=== PATIENT | female | born 1945 | race Caucasian/White ===

== ENCOUNTER → 2017-07-17 | Outpatient (CLI) | payer OTHER ==
[~2017-07-17] MED LIST: ACET650T82 PO; ALL180 PO; ATOR10TA88 PO; CALC-220 PO; CHOL1CAP57 PO; CITA40TA4 PO; CYCL10TA6 PO; DIPH-437 PO; DPR600 PO; GLUCTAB32 PO; LEVO125T4 PO; MULT-884 PO; OXYBUTYNIN CHLORIDE PO; RXC5 PO; VTMB12100 PO; WHEATAB2 PO
--- NOTE | 2017-07-17 15:47 | DIAGNOSTIC IMAGING REPORT ---
BONE SCAN 3PHASE WHOLE BODY CLINICAL HISTORY: PAINFUL RT KNEE TECHNIQUE: Dynamic as well as static images from the administration of 25.6 mCi technetium 99m MDP. COMPARISON STUDY: None FINDINGS: Initial dynamic vascular flow images show increased activity and vascular flow about the right knee as compared to the left. Blood pool and static delayed images demonstrate increased activity primarily deep to the tibial prosthetic. Moderate activity is identified adjacent to the femoral prosthetic. Remainder the study shows mild degenerative activity of the lumbar spine as well as cervical region. There are findings of care calyceal distention involving components of the upper right kidney. Renal ultrasonography is suggested as follow-up. IMPRESSION: 1. 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 2. Additional postoperative changes of the shoulders considered unremarkable by bone scan criteria. 3. Degenerative activity of the cervical and lumbar spine. 4. Calyceal dilatation upper pole right kidney. Renal ultrasound is recommended as follow-up. The above report was generated using voice recognition software. It may contain grammatical, syntax or spelling errors. Electronically signed by: Luke Brewer M.D. 07/17/2017 3:45 PM Dictated Date/Time: 07/17/2017 3:41 PM
--- NOTE | 2017-07-25 11:42 | CODING QUERY NO DIAGNOSIS ---
TREATMENT RENDERED WITHOUT A DIAGNOSIS To promote full compliance with coding requirements relating to patient care, physician participation is requested in all cases of technology education teacher uncertainty. Please assist us with providing a diagnosis/symptom for the test(s) below: A diagnosis/symptom was not documented on your Order. A valid diagnosis/symptom is required to bill all insurances. Please remember that we are unable to code a diagnosis of rule out, probable, possible, questionable, or suspected. Tests that require a diagnosis: * BONE SCAN 3PHASE WHOLE BODY DIAGNOSIS: Provider Signature: Date: Thank you Brittanie [place] [employer] Once completed, please kindly fax back to [phone] For questions please call [phone]
== END | disposition home or self-care (01) ==
LOC: C.NUCL 11:00
PROVIDERS: ATTEND Orthopaedic Surgery
DX: M25.561 Pain in right knee (principal); T84.039A Mechanical loosening of unspecified internal prosthetic joint, initial encounter; X58.XXXA Exposure to other specified factors, initial encounter

== ENCOUNTER 2017-08-19 10:08 | Inpatient (IN) | payer OTHER ==
[2017-08-06 11:46] VITALS: BMI 35.0
--- NOTE | 2017-08-06 12:45 | PAT Medication Instructions ---
Service Date Aug 06, 2017. Current Home Medication List Acetaminophen (Tylenol Arthitis Ext Rel), 2 TAB PO DAILY PRN for Pain Atorvastatin (Lipitor), 10 MG PO QPM Calcium Carbonate-Vitamin D (Calcium + D), 1 TAB PO QAM Cetirizine Hcl (Eq Allergy Relief), 1 TAB PO QAM PRN for ALLERGY RELIEF Cholecalciferol (Vitamin D3), 1,000 UNITS PO QAM Citalopram (Citalopram Hydrobromide), 40 MG PO QAM Cyanocobalamin (B-12), 1 TAB PEG QPM Cyclobenzaprine Hcl (Flexeril), 10 MG PO TID PRN for PRN Garlic (Garlic), 1 TAB PO QAM Qanbhqazufm-Vujcfcaecwk-Ko Cho (Glucosamine Chondroitin &), 1 TAB PO BID Levothyroxine Sodium (Levothyroxine Sodium), 1 TAB PO QPM Multiple Vitamin (Multi Vitamin Daily), 1 TAB PO QAM Oxaprozin (Oxaprozin), 600 MG PO BID Oxybutynin Chloride (Oxybutynin Chloride ER), 2 TAB PO QPM Medication Instructions For Your Scheduled Surgery - Hold the following medications 2 weeks prior to surgery: Garlic (Garlic), 1 TAB PO QAM Ndrlgexvtig-Iixvwkfiuig-Mw Cho (Glucosamine Chondroitin &), 1 TAB PO BID - Hold the following medications 7-10 days prior to surgery: Oxaprozin (Oxaprozin), 600 MG PO BID - Hold the following medications the morning of surgery: Calcium Carbonate-Vitamin D (Calcium + D), 1 TAB PO QAM Cetirizine Hcl (Eq Allergy Relief), 1 TAB PO QAM PRN for ALLERGY RELIEF Cholecalciferol (Vitamin D3), 1,000 UNITS PO QAM Cyclobenzaprine Hcl (Flexeril), 10 MG PO TID PRN for PRN Multiple Vitamin (Multi Vitamin Daily), 1 TAB PO QAM - Take the following medications the morning of surgery with a sip of water OTHERWISE NOTHING TO EAT OR DRINK AFTER MIDNIGHT: Acetaminophen (Tylenol Arthitis Ext Rel), 2 TAB PO DAILY PRN for Pain (may take if needed up to 4 hours prior to surgery) Citalopram (Citalopram Hydrobromide), 40 MG PO QAM - Take the following medications as scheduled the night before surgery: Levothyroxine Sodium (Levothyroxine Sodium), 1 TAB PO QPM Oxybutynin Chloride (Oxybutynin Chloride ER), 2 TAB PO QPM Atorvastatin (Lipitor), 10 MG PO QPM Acetaminophen (Tylenol Arthitis Ext Rel), 2 TAB PO DAILY PRN for Pain Cyclobenzaprine Hcl (Flexeril), 10 MG PO TID PRN for PRN Cyanocobalamin (B-12), 1 TAB PO QPM If you have any questions please call us at [phone] or [phone] or [phone]
[2017-08-06 13:27] LABS: BASO % 0.6 %; BASO ABS # 0.03 K/uL (0-0.2); COMPLETE YES; EOS % 3.4 %; HEMATOCRIT 40.3 % (37-47); IG% 0.2 %; LYMPH % 30.1 %; LYMPH ABS # 1.51 K/uL (1.2-3.4); MEAN CELL VOLUME 93.1 fL (80-100); MEAN CORPUSCULAR HGB CONC 32.3 g/dl (32-36); MEAN PLATELET VOLUME 10.6 fL (7.4-10.4); MONO % 6.6 %; NEUT % 59.1 %; PLATELET COUNT 302 K/uL (130-400); RED BLOOD COUNT 4.33 M/uL (4.2-5.4); WHITE BLOOD COUNT 5.02 K/uL (4.8-10.8)
--- NOTE | 2017-08-06 13:31 | DIAGNOSTIC IMAGING REPORT ---
CHEST 2 VIEWS ROUTINE HISTORY: 71 years-old Female pat preoperative exam. No acute chest complaints COMPARISON: Chest radiographs 06/28/2015 TECHNIQUE: Frontal and lateral views of the chest FINDINGS: Cardiomediastinal and hilar silhouettes are within normal limits. There is no pneumothorax, pleural effusion or focal airspace consolidation. No overt pulmonary edema. Remote healed right-sided rib fractures are again seen. Advanced right shoulder degenerative changes. Left shoulder arthroplasty noted. There is mild sigmoidal scoliosis of the spine. Surgical clips within the upper abdomen suggest prior cholecystectomy. IMPRESSION: No acute cardiopulmonary process. The above report was generated using voice recognition software. It may contain grammatical, syntax or spelling errors. Electronically signed by: Eulogio Smallwood M.D. 08/06/2017 1:30 PM Dictated Date/Time: 08/06/2017 1:29 PM
[2017-08-06 13:37] LABS: INR 1.1 (0.9-1.1); PARTIAL THROMBOPLASTIN RATIO 1.1; PROTHROMBIN TIME (PATIENT) 11.3 SECONDS (9.0-12.0)
[2017-08-06 13:38] LABS: URINE APPEARANCE CLEAR (CLEAR); URINE BILIRUBIN NEG (NEG); URINE COLOR YELLOW; URINE NITRITE POS (NEG); URINE SPECIFIC GRAVITY 1.019 (1.000-1.030); UROBILINOGEN NEG (NEG)
[2017-08-06 13:50] LABS: MANUAL MICROSCOPIC REQUIRED? NO; REVIEW REQ? NO
[2017-08-06 14:01] LABS: BUN/CREATININE RATIO 29.5 (10-20); CALCIUM 8.9 mg/dl (8.5-10.1); CREATININE 0.59 mg/dl (0.60-1.20); POTASSIUM 3.8 mmol/L (3.5-5.1)
--- NOTE | 2017-08-18 19:05 | HISTORY & PHYSICAL EXAMINATION ---
DATE OF ADMISSION: 08/19/2017 HISTORY AND PHYSICAL ADMISSION NOTE CHIEF COMPLAINT: Prosthetic loosening of the right knee. HISTORY OF PRESENT ILLNESS: Vianey is a pleasant 71-year-old female who is now 3 years status post right total knee arthroplasty. She was doing well until about 3 months ago. She states she has had several falls over the winter, but did not seem to bother her knee too much until over the past 3 months, it has become quite painful. It really hurts her each step she takes. Her recently and in dealing with his illness she had to stand for long periods of time. That is when she really began to notice it. X-rays in the office showed possible loosening, so I sent her for bone scan and bone scan confirmed loosening of the prosthesis. White count is 5.02 and she is afebrile. ESR is 6 and CRP is 0.54. There is no effusion or signs of infection so I do not feel an aspiration is indicated. She has elected to proceed with a revision of the tibial component of a right total knee arthroplasty. PAST MEDICAL HISTORY: Significant for hypothyroidism, depression, and hyperlipidemia. PAST SURGICAL HISTORY: Significant for a right total knee arthroplasty 3 years ago and a left total shoulder arthroplasty 2 years ago. ALLERGIES: CIMETIDINE AND PENICILLINS. MEDICATIONS: Include Tylenol 650 mg as needed, Lipitor 10 mg daily, calcium D daily, cetirizine 10 mg as needed, vitamin D3 1000 units daily, Celexa 40 mg daily, vitamin B12 1000 mg daily, Flexeril 10 mg 3 times a day, glucosamine chondroitin twice a day, Synthroid 125 mcg daily, daily multivitamin, oxaprozin 600 mg twice a day and oxybutynin 10 mg 2 tabs daily. FAMILY HISTORY: Significant for uterine cancer. SOCIAL HISTORY: She is , lives alone. She never drinks alcohol and is moderately active. REVIEW OF SYSTEMS: She complains of right knee pain. All other pertinent review of systems is negative. PHYSICAL EXAMINATION: GENERAL: She is awake, alert and oriented x3. She is in no apparent distress. She is very pleasant. HEENT: Pupils are equal, round and reactive to light. Extraocular motion intact. Oral mucosa is pink and moist. HEART: Regular rate per radial pulse. LUNGS: Freya symmetrically bilaterally with no audible breath sounds. ABDOMEN: Soft, nontender, nondistended. MUSCULOSKELETAL: On physical examination of the right knee, she has a slight valgus deformity. She has decent motion from 0-120 degrees. There is no true instability. She has a lot of tenderness to palpation in the area of the proximal tibia and tibial plateau. She is able to ambulate into the office without assistance. She has full range of motion of her hip without pain. IMAGING DATA: X-rays of the left knee do show radiolucency around the tibial prosthesis with some signs of subsidence. Bone scan of the knee does show significant increased uptake around the area of the tibial plateau, which is indicative of tibial loosening. 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 PLAN: Will proceed with a revision right total knee arthroplasty to include a cemented tibial component with a stem. She will be started on Xarelto postoperatively for DVT prophylaxis. She will be kept in the hospital for likely 2 midnights for postoperative medical management. NIKUNJ
[2017-08-19] VITALS (7 sets, daily range): BP systolic 102–126; BP diastolic 65–70; PULSE 54–70; TEMP 36.2–36.7; O2SAT 91–99; Ht 152.4 cm; Wt 82.4 kg
[~2017-08-19] VITALS: Ht 152.4 cm; Wt 82.4 kg
[~2017-08-19 10:08] MED LIST changes: -ACET650T82 PO; +ACETAMINOPHEN 500 MG TAB PO SCH; -ALL180 PO; +ATOR10TA82 PO; -ATOR10TA88 PO; +BUPIVACAINE 0.5 % 5 MG/1 ML PF 10ML VIAL ONE; -CALC-220 PO; +CALC600T9 PO; +CETI1TAB PO; +CYAN1CAP3 PO; -DIPH-437 PO; +DTRSR/10 PO; +FAMOTIDINE 20 MG TAB PO SCH; +GABAPENTIN 300 MG CAP PO SCH; +GARL10007 PO; +LACTATED RINGER'S 1000ML 1,000 ML IV SCH; +LACTATED RINGER'S 1000ML IV SCH; +LACTATED RINGER'S 500 ML IV SCH; -LEVO125T4 PO; +LEVO125T5 PO; +METOCLOPRAMIDE HCL 10 MG TAB PO SCH; -OXYBUTYNIN CHLORIDE PO; +ROPIVACAINE 5MG/ML 30 ML 150 MG, BUPIVACAINE 0.5% MPF INJ 30 ML, EpINEphrine HCL INJ 0.... INFIL SCH; -RXC5 PO; +TYLER650 PO; +VANCOMYCIN INJ 1,250 MG in SODIUM CHLORIDE 0.9% 250ML 250 ML IV SCH; -VTMB12100 PO; -WHEATAB2 PO
[2017-08-19] MEDS ORDERED: EpHEDrine SULFATE INJ 50 MG/ML AMP IV PRN ×2 (13:30→18:15)
[2017-08-19] MEDS ORDERED: ATROPINE SULFATE 0.1 MG/ML 5ML SYR IV PRN ×2 (13:30→18:15)
[2017-08-19] MEDS ORDERED: ONDANSETRON INJ 2 MG/ML 2 ML VIAL IV PRN ×3 (13:30→18:15)
[2017-08-19] MEDS ORDERED: FENTANYL CITRATE INJ 50 MCG/1 ML 2 ML VIAL IV PRN (13:30)
--- NOTE | 2017-08-19 13:32 | History & Physical Bridge Note ---
H&P Re-Evaluation Bridge Note: I have examined the patient, reviewed the History & Physical and in the interval since the performance of the History & Physical I have noted the following changes of clinical significance: No changes noted
[2017-08-19] MEDS ORDERED: BUPIVACAINE 0.25% 30 ML VIAL ONE (14:04)
[2017-08-19] MEDS ORDERED: FENTANYL CITRATE INJ 50 MCG/1 ML 2 ML VIAL ONE (14:57)
[2017-08-19] MEDS ORDERED: MIDAZOLAM HCL 1 MG/ML 2ML VIAL ONE (14:57)
[2017-08-19] MEDS: TRANEXAMIC ACID INJ 1,000 MG in SODIUM CHLORIDE 0.9% 100ML 100 ML IV SCH ×2 (15:31→20:32)
[2017-08-19] MEDS ORDERED: BACITRACIN 50000 UNIT VIAL ONE (15:36)
[2017-08-19] MEDS ORDERED: ORTHO JOINT ANESTHETIC ONE (15:36)
[2017-08-19] MEDS ORDERED: CEFAZOLIN SOD 1 GM VIAL ONE (16:14)
[2017-08-19] MEDS ORDERED: LIDOCAINE HCL 2% 2 ML VIAL (20MG/ML) ONE (16:52)
[2017-08-19] MEDS ORDERED: PROPOFOL IV EMULSION 10 MG/ML 20 ML VIAL IV ONE ×2 (16:52)
[2017-08-19] MEDS ORDERED: SOD PHOSPHATE/SOD BIPHOSPHATE ENEMA 132 ML BTL PR PRN (17:45)
[2017-08-19] MEDS ORDERED: MoRPHine SULFATE 2 MG/ML CARP IV PRN (17:45)
[2017-08-19] MEDS ORDERED: METOCLOPRAMIDE HCL INJ 5 MG/ML 2 ML VIAL IV PRN (17:45)
[2017-08-19] MEDS ORDERED: OXYCODONE HCL IR 5 MG TAB (IMMEDIATE RELEASE) PO PRN (17:45)
[2017-08-19] MEDS ORDERED: MAGNESIUM HYDROXIDE SUSP 30 ML UDC PO PRN (17:45)
[2017-08-19] MEDS ORDERED: BISACODYL 10 MG SUPP PR PRN (17:45)
[2017-08-19] MEDS ORDERED: CETIRIZINE HCL 10 MG TAB PO PRN (17:45)
--- NOTE | 2017-08-19 17:45 | [facility] Post Operative Brief Note ---
Immediate Operative Summary Operative Date Aug 19, 2017. Pre-Operative Diagnosis Tibial component loosening of the right knee Post-Operative Diagnosis Same Procedure(s) Performed Right Total Knee Revision of Tibial Component Surgeon Dr. Marte Information Systems Security Officer Surgeon(s) Omar Chávez PA-C Estimated Blood Loss 10cc Findings as above Specimens a. explanted hardware- right knee Complication(s) None Disposition Recovery Room / PACU
[2017-08-19] MEDS ORDERED: FLUMAZENIL 0.1 MG/1 ML 10 ML VIAL IV PRN (18:15)
[2017-08-19] MEDS ORDERED: NALOXONE HCL 0.4 MG/1 ML VIAL/CARP IV PRN (18:15)
--- NOTE | 2017-08-19 18:40 | OPERATIVE REPORT ---
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 POSTOPERATIVE DIAGNOSIS: Same. PROCEDURE: Right knee revision tibial component with a stemmed implant. SURGEON: Dr. Trey Marte. RIGGING LOFT REPAIRER: Omar Chávez PA-C, whose assistance was necessary for positioning of the leg and helping with instrumentation and retraction. ANESTHESIA: Spinal with a right adductor nerve block. COMPLICATIONS: None. CONDITION: Stable to PACU. IMPLANTS USED: I removed the old tibial baseplate and replaced it with a Biomet 360 revision system with a size 71 tibia with a 5-mm offset and a size 80 stem. Stem was a size 15. There was size 14 posterior stabilized poly. INDICATIONS: Vianey is a pleasant 71-year-old female who underwent a right total knee arthroplasty about 3 years ago. She did extremely well with her knee and was happy. Unfortunately, she fell several times over the winter and then her . Her knee has been bothering her and it has been getting worse. She was having trouble ambulating. X-rays and bone scan were diagnostic for loosening of the tibial component. Labwork confirmed aseptic loosening. DESCRIPTION OF PROCEDURE: On 08/19/2017, she arrived at [facility] for the above procedure. She was seen in the preoperative holding area and the operative extremity was identified and signed. She was given a preoperative antibiotic, a spinal anesthetic and a right adductor nerve block. She was taken back to the operating room, laid on the table in supine position and put under basic sedation. The right knee was then prepped and draped in sterile fashion. Time-out was done and the patient and operative extremity was properly identified. The old incision was opened back up midline over the patella. Dissection was taken down through the extensor mechanism and a medial parapatellar approach was used. There was not a lot of scar tissue and the entire knee looked relatively benign. When the knee joint was opened, there was a little bit of synovial fluid in the joint and certainly no signs of infection. The medial retinaculum was released and the knee was flexed. The femoral component was checked first. It was tapped aggressively with a bone tamp and I could not get the femoral component removed. The tibial component could easily be removed. An osteotome was used to a kind of lift it off of the proximal tibia. The tibial component was removed and all the cement easily came out. Time was spent removing all soft tissue from the bone and around the proximal tibia. A sequential reaming up to a size 16 reamer was done. Off the final reamer, a proximal tibial resection guide was placed and 1 mm was taken off the low medial side. This freshened up the cut. The tibia measured to be a size 71 and a size 5-mm tibial offset seemed to be the best fit. I used an 80-mm stem. Trials were used and I was happy with the placement of the tibia. The final size 71 tibia with a 5-mm offset and an 80 stem was then cemented into place. Care was taken to ensure cement was appropriately pushed in all bony crevices and well placed along the tibial component. Once cement had hardened, several different polyethylene inserts were trialed and a size 14 seemed to be the best fit. The final size 14 implant was then snapped into place and the anterior bar was locked. The knee was brought through a full range of motion and felt to be stable. Again, the femoral component was once again checked and there was no evidence of loosening. The surrounding soft tissues were injected with 100 mL of an orthopedic pain control cocktail. The wound was then irrigated with 3 liters of normal saline solution with bacitracin. The extensor mechanism was then closed with #2 FiberWire suture in the superior medial aspect and #1 Vicryl, both proximally and distally. The incision was then closed with 2-0 Vicryl, 3-0 V-Loc suture and andre. She was then placed in a soft compressive dressing and taken to the postanesthesia care unit in stable condition. She tolerated the procedure well. I attest to the content of the Intraoperative Record and any orders documented therein. Any exceptions are noted below. NIKUNJ
--- NOTE | 2017-08-19 18:46 | DIAGNOSTIC IMAGING REPORT ---
R KNEE 1 OR 2 VIEWS ROUTINE CLINICAL HISTORY: Postoperative evaluation. COMPARISON: Knee radiographs July 09, 2017. FINDINGS: Alignment of the revision right knee arthroplasty is anatomic with a long stem tibial component. There is no fracture or unexpected radiopaque foreign body. Skin andre are present. IMPRESSION: Expected findings following revision right knee arthroplasty. Electronically signed by: Vega Corona M.D. 08/19/2017 6:45 PM Dictated Date/Time: 08/19/2017 6:44 PM
--- NOTE | 2017-08-19 19:08 | Anesthesiology Progress Note ---
Anesthesia Post Op Note Date & Time Aug 19, 2017 at 19:07 Vital Signs Pain Intensity: 0 Vital Signs Past 12 Hours Date Time Temp Pulse Resp B/P (MAP) Pulse Ox O2 Delivery O2 Flow Rate FiO2 08/19/17 18:55 36.5 63 18 128/59 97 Nasal Cannula 2 08/19/17 18:45 72 18 106/55 97 Nasal Cannula 2 08/19/17 18:35 65 20 103/62 95 Nasal Cannula 2 08/19/17 18:25 76 20 118/58 95 Oxymask 3 08/19/17 18:15 83 20 111/58 96 Oxymask 5 08/19/17 18:06 36.8 88 20 119/59 97 Oxymask 10 08/19/17 10:49 36.7 70 20 126/70 96 Room Air Notes Mental Status: alert / awake / arousable, participated in evaluation Pt Amnestic to Procedure: Yes Nausea / Vomiting: adequately controlled Pain: adequately controlled Airway Patency, RR, SpO2: stable & adequate BP & HR: stable & adequate Hydration State: stable & adequate Neuraxial Anesthesia: was administered, sensory block is resolving Anesthetic Complications: no major complications apparent
[2017-08-19] MEDS: SODIUM CHLORIDE 0.9% 1000ML 1,000 ML IV SCH (20:38)
[2017-08-19] MEDS: CYANOCOBALAMIN 500 MCG TAB (VIT B-12) PO SCH (21:21)
[2017-08-19] MEDS: ATORVASTATIN 10 MG TAB PO SCH (21:21)
[2017-08-19] MEDS: DOCUSATE SODIUM 100 MG CAP PO SCH (21:21)
[2017-08-19] MEDS: SENNA 8.6 MG TAB PO SCH (21:22)
[2017-08-19] MEDS: ACETAMINOPHEN 500 MG TAB PO SCH (21:22)
[2017-08-19] MEDS: OXYBUTYNIN CHLORIDE 5 MG TABCR PO SCH (21:22)
[2017-08-19] MEDS: KETOROLAC TROMETHAMINE 15 MG/ML VIAL IV. SCH (21:27)
[2017-08-19] MEDS ORDERED: VANCOMYCIN INJ 1,250 MG in SODIUM CHLORIDE 0.9% 250ML 250 ML IV SCH (22:00)
[2017-08-20 02:28] VITALS: BP 149/67; PULSE 79; TEMP 36.6; O2SAT 95
[2017-08-20] MEDS: KETOROLAC TROMETHAMINE 15 MG/ML VIAL IV. SCH ×4 (03:48→22:05)
[2017-08-20 05:50] LABS: HEMATOCRIT 33.9 % (37-47); MEAN CELL VOLUME 92.4 fL (80-100); MEAN CORPUSCULAR HEMOGLOBIN 30.8 pg (25-34); MEAN CORPUSCULAR HGB CONC 33.3 g/dl (32-36); MEAN PLATELET VOLUME 10.6 fL (7.4-10.4); PLATELET COUNT 250 K/uL (130-400); RED BLOOD COUNT 3.67 M/uL (4.2-5.4); WHITE BLOOD COUNT 10.94 K/uL (4.8-10.8)
[2017-08-20] MEDS: SODIUM CHLORIDE 0.9% 1000ML 1,000 ML IV SCH ×2 (05:54→16:11)
[2017-08-20] MEDS: ACETAMINOPHEN 500 MG TAB PO SCH ×3 (05:55→22:05)
[2017-08-20] MEDS: LEVOTHYROXINE 125 MCG TAB PO SCH (05:55)
[2017-08-20 06:19] LABS: BUN/CREATININE RATIO 28.4 (10-20); CALCIUM 8.3 mg/dl (8.5-10.1); CREATININE 0.41 mg/dl (0.60-1.20); POTASSIUM 3.6 mmol/L (3.5-5.1)
--- NOTE | 2017-08-20 06:49 | Discharge Instructions ---
Discharge Instructions Date of Service Aug 20, 2017. Admission Reason for Admission: Prosthetic Loosening Right Total Knee Replacement Discharge Discharge Diagnosis / Problem: Right Revision Total Knee Discharge Goals Goal(s): Decrease discomfort, Improve function Activity Recommendations Activity Limitations: as noted below . Instructions / Follow-Up Instructions / Follow-Up Activity and Therapy Recommendations: * If you are using [facility] then Physical Therapy will be provided until they feel you are ready to start Outpatient Physical Therapy. If you are not using a Home Health agency then Outpatient Physical Therapy should start about 3-5 days from your day of surgery. Therapy will last about 6-10 weeks * It is important not to put a pillow under your knee when you are relaxing or sleeping. It is just as important to make sure you are getting your knee perfectly straight as it is to regain your knee bend. * You were shown a series of exercises in the hospital. Do these exercises three times each day including the exercises you were shown in physical therapy. * Get up and walk several times each day. For the first four weeks, try not to stand or walk for more than one hour at a time. If you do stand or walk for more than one hour, you will not hurt anything, but your leg will likely swell. * As you feel comfortable, you may change from the walker or crutches to a cane and then to independent walking. Medications: * Narcotic You will likely be sent home from the hospital with a prescription for the narcotic pain medication that worked best throughout your stay. * Aspirin Most patients will be required to take Aspirin 325mg twice a day for 6 weeks after surgery. This is obtained [id number] and a prescription is not necessary. * Other medications may be prescribed for specific circumstances. If you have any questions, please call the office at . * Resume previous home medications unless otherwise instructed TEDs/Elastic Stockings: The white elastic stockings help limit swelling and prevent blood clots from forming in your legs.~ The more you wear them, the more they work. Wear them for six weeks. Showering: You may shower 5 days from the day of surgery. Let the soapy shower water run over the andre. Do not scrub or soak the incision. Things To Watch For: * Drainage from the incision site that occurs more than one week after your surgery. * Increased redness at the incision site. * Fever above 102 degrees Fahrenheit. * Unusual chest pain or shortness of breath. * Call [facility] at with any of the above problems Follow-Up Visit: Follow-up with Dr. Marte 2-3 weeks after your day of surgery. An appointment was probably scheduled when you signed-up for surgery in the office. If you have any questions call Office Instructions: More detailed instructions as well as Frequently Asked Questions were provided in a folder by our office when you signed-up for surgery. Please review these instructions when you get home. If you have any further questions or concerns, please feel free to call the office at [phone] Current Hospital Diet Patient's current hospital diet: Regular Diet Discharge Diet Recommended Diet: Regular Diet Procedures Procedures Performed: Right Total Knee Revision of Tibial Component Pending Studies Studies pending at discharge: no Medical Emergencies . Who to Call and When: Medical Emergencies: If at any time you feel your situation is an emergency, please call [phone] immediately. . Non-Emergent Contact Non-Emergency issues call your: Surgeon Call Non-Emergent contact if: wound has increased drainage, wound has increased redness . "Provider Documentation" section prepared by Trey Marte. . VTE Core Measure Inpt VTE Proph given/why not?: Other Anticoagulation (Xerelto 10mg daily for 14 days)
[2017-08-20 07:06] VITALS: BP 110/66; PULSE 60; TEMP 36.9; O2SAT 93
--- NOTE | 2017-08-20 07:13 | PROGRESS NOTE ---
DATE: 08/20/2017 CHIEF COMPLAINT: Status post revision right total knee, postop day #1. PROGRESS: Vianey was seen and examined at bedside today. Overall, she is doing very well. She says she has very little pain in her right knee. She has been up and ambulating to the bathroom, but that is it. Her pain is controlled. She has no complaints. PHYSICAL EXAMINATION: RIGHT KNEE: Her leg is out in full extension. The dressing is clean and dry and the drain is to suction. She has active dorsiflexion and plantarflexion of her right ankle and sensation is intact throughout. LABS: She has an H&H today of 11.3 and 33.9. Her glucose is 109. Her vital signs are all stable on room air and she is voiding on her own. X-rays postoperatively of the right knee show the prosthesis to be in anatomic alignment without any evidence of fracture, dislocation or loosening. IMPRESSION: Status post revision tibial component of the right knee, postop day #1. PLAN: At this point she is doing well. She can be up and ambulating with physical therapy. She is on Xarelto for DVT prophylaxis due to an aspirin allergy. Will work on pain control today. Tomorrow the nursing staff can change the dressing and pull the drain and will likely discharge her to home.
[2017-08-20] MEDS: CITALOPRAM 40 MG TAB PO SCH (08:55)
[2017-08-20] MEDS: DOCUSATE SODIUM 100 MG CAP PO SCH ×2 (08:55→20:28)
[2017-08-20] MEDS: PANTOprazole SOD 40 MG TAB PO SCH (08:56)
[2017-08-20] MEDS: MULTIVITAMIN TAB PO SCH (08:56)
[2017-08-20] MEDS: CHOLECALCIFEROL 1000 INTER.UNIT TAB PO SCH (08:57)
[2017-08-20] MEDS ORDERED: INFLUENZA ADMINISTRATION CHARGE ONE (09:00)
[2017-08-20] MEDS ORDERED: INFLUENZA VACCINE HIGH DOSE 65+ 0.5 ML SYR IM. ONE (09:00)
--- NOTE | 2017-08-20 09:15 | Anesthesiology Progress Note ---
Anesthesia Post Op Note Date & Time Aug 20, 2017 at 09:15 Vital Signs Pain Intensity: 0.0 Vital Signs Past 12 Hours Date Time Temp Pulse Resp B/P (MAP) Pulse Ox O2 Delivery O2 Flow Rate FiO2 08/20/17 08:12 Room Air 08/20/17 07:06 36.9 60 18 110/66 (81) 93 Room Air 08/20/17 02:28 36.6 79 16 149/67 (94) 95 Room Air 08/19/17 23:45 Room Air 08/19/17 23:08 36.6 60 16 104/66 (79) 93 Room Air 08/19/17 22:52 36.3 62 16 114/66 (82) 91 Room Air 08/19/17 21:36 36.4 69 16 102/65 (77) 98 Nasal Cannula 2.0 Notes Mental Status: alert / awake / arousable, participated in evaluation Pt Amnestic to Procedure: Yes Nausea / Vomiting: adequately controlled Pain: adequately controlled Airway Patency, RR, SpO2: stable & adequate BP & HR: stable & adequate Hydration State: stable & adequate Neuraxial Anesthesia: sensory block resolved Anesthetic Complications: no major complications apparent
[2017-08-20 11:40] VITALS: BP 102/63; PULSE 63; TEMP 36.7; O2SAT 93
[2017-08-20 15:07] VITALS: BP 102/60; PULSE 55; TEMP 37; O2SAT 94
[2017-08-20] MEDS ORDERED: RIVAROXABAN 10 MG TAB PO SCH (17:45)
[2017-08-20 20:25] VITALS: BP 120/71; PULSE 77; TEMP 37.4; O2SAT 95
[2017-08-20] MEDS: CYANOCOBALAMIN 500 MCG TAB (VIT B-12) PO SCH (20:28)
[2017-08-20] MEDS: ATORVASTATIN 10 MG TAB PO SCH (20:28)
[2017-08-20] MEDS: OXYBUTYNIN CHLORIDE 5 MG TABCR PO SCH (20:28)
[2017-08-20] MEDS: SENNA 8.6 MG TAB PO SCH (20:29)
[2017-08-20 23:11] VITALS: BP 113/66; PULSE 70; TEMP 37.4; O2SAT 94
[2017-08-21] MEDS: KETOROLAC TROMETHAMINE 15 MG/ML VIAL IV. SCH (03:26)
[2017-08-21] MEDS: ACETAMINOPHEN 500 MG TAB PO SCH (05:17)
[2017-08-21] MEDS: LEVOTHYROXINE 125 MCG TAB PO SCH (05:17)
[2017-08-21 06:45] VITALS: BP 117/74; PULSE 87; TEMP 36.6; O2SAT 91
[2017-08-21] MEDS ORDERED: XRL10 PO (07:21)
[2017-08-21] MEDS ORDERED: RXC5 PO (07:21)
--- NOTE | 2017-08-21 07:39 | PROGRESS NOTE ---
DATE: 08/21/2017 DATE: 08/21/2017 CHIEF COMPLAINT: Status post revision right total knee arthroplasty postop day #2. PROGRESS: Vinaey was seen and examined at bedside today. Overall, she is doing very well. She says her preoperative pain is gone. She just has a little bit of surgical pain. She is very happy with her progress. She has been working well with physical therapy, has no complaints. PHYSICAL EXAMINATION: RIGHT KNEE: She is sitting with her knee flexed at 90 degrees. The dressing has been changed. She is neurovascularly intact. The incision looks good. IMPRESSION: Status post revision right total knee arthroplasty postop day #1. PLAN: At this point, she is doing well and happy with her progress. She will continue to work well with physical therapy. We will discharge her to home later this morning with [facility].
--- NOTE | 2017-08-21 08:04 | DISCHARGE SUMMARY ---
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 PROCEDURE: Revision of the tibial component of the right knee on 08/19/[address] Trey Marte. DISCHARGE INSTRUCTIONS: 1. Oxycodone 5-10 mg every 4 hours as needed for pain. 2. Xarelto 10 mg daily for 2 weeks. 3. Tylenol 2 tabs as needed for pain. 4. Lipitor 10 mg daily. 5. Calcium 1 tab daily. 6. Vitamin D 1000 units daily. 7. Celexa 40 mg daily. 8. Vitamin B12 1000 mcg daily. 9. Flexeril 10 mg as needed. 10. Synthroid 125 mcg daily. 11. Oxaprozin 600 mg twice a day. 12. Oxybutynin 20 mg daily. 13. Daily multivitamin. 14. Follow up with Dr. Marte in 2 weeks. 15. Call the office of Dr. Marte with any questions or concerns. HOSPITAL COURSE: Vianey is a pleasant 71-year-old female who underwent a right total knee arthroplasty 3 years ago. She had multiple falls over the winter. She was then having complaints of right knee pain while ambulating. X-rays and bone scan were diagnostic for loosening of the tibial component. She elected to undergo revision total knee arthroplasty. On 08/19/2017 she arrived at [facility] and underwent a revision with tibial component of the right knee without complications. Postoperatively, she was started on Xarelto for DVT prophylaxis due to an aspirin allergy and discharged to general orthopedic floor. Her hospital course was uneventful. On postop day #1, her H&H was stable at 11.3 and 33.9. She was up and ambulating well with physical therapy. Her knee felt better than it did preoperatively. On postop day #2, the dressing was changed and she continued to ambulate well with physical therapy. Her pain was controlled and she was subsequently discharged to home with [facility] and the above instructions.
[2017-08-21] MEDS: MULTIVITAMIN TAB PO SCH (09:12)
[2017-08-21] MEDS: DOCUSATE SODIUM 100 MG CAP PO SCH (09:12)
[2017-08-21] MEDS: PANTOprazole SOD 40 MG TAB PO SCH (09:12)
[2017-08-21] MEDS: CITALOPRAM 40 MG TAB PO SCH (09:12)
[2017-08-21] MEDS: CHOLECALCIFEROL 1000 INTER.UNIT TAB PO SCH (09:13)
[2017-08-21 10:22] VITALS: BP 117/74; PULSE 87; TEMP 36.6; O2SAT 91
== END 2017-08-21 10:59 | disposition home health service (06) | DRG 468 ==
LOC: C.ACU 10:08 → C.3E 13:43 → ENRESERV 18:23
PROVIDERS: ADMIT Orthopaedic Surgery; ATTEND Orthopaedic Surgery
PROC: 0SPC0JZ Removal of Synthetic Substitute from Right Knee Joint, Open Approach (ICD-10-PCS; principal; 2017-08-19 13:30)
PROC: 0SRV0J9 Replacement of Right Knee Joint, Tibial Surface with Synthetic Substitute, Cemented, Open Approach (ICD-10-PCS; principal; 2017-08-19 13:30)
DX: T84.032A Mechanical loosening of internal right knee prosthetic joint, initial encounter (principal); E03.9 Hypothyroidism, unspecified; E78.5 Hyperlipidemia, unspecified; F32.9 Major depressive disorder, single episode, unspecified; Y79.2 Prosthetic and other implants, materials and accessory orthopedic devices associated with adverse incidents; Y92.019 Unspecified place in single-family (private) house as the place of occurrence of the external cause; Z96.651 Presence of right artificial knee joint